=== PATIENT | male | born 1995 | race African-American/Black ===

== ENCOUNTER 2024-03-04 16:40 | Outpatient (CLI) | payer MEDICARE, MEDICAID, SELFPAY ==
--- NOTE | ~2024-03-04 | CT_ITS ---
EXAMINATION: CT sinus wo con DATE: 03/04/2024 17:15 INDICATION: Chronic sinusitis. TECHNIQUE: Computed tomography (CT) of the paranasal sinuses was performed without intravenous contra st. Iterative reconstruction technique was employed. The dose-length product was 303.09 mGy-cm. COMPARISON: None FINDINGS: There is mild mucosal thickening in right frontal sinus and the left ethmoid and right maxi llary sinuses. 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 There is leftward deviation of the nasal se ptum. 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 The ostiomeatal units are patent. IMPRESSION: 1. Mild mucosal thickening in the paranasal sinuses. 2. Leftward deviation of the nasal septum. Reviewed, dictated and finalized at location A.
== END 2024-03-04 16:41 | disposition home or self-care (01) ==
PROVIDERS: Visit Provider Otolaryngology
DX: J32.9 Chronic sinusitis, unspecified (principal); J34.2 Deviated nasal septum; J34.89 Other specified disorders of nose and nasal sinuses
CPT/HCPCS: 70486

== ENCOUNTER 2024-12-22 18:16 | Emergency (ER) | payer MEDICARE, MEDICAID, SELFPAY ==
--- OUTSIDE RECORDS SUMMARY | 2024-12-22 18:18 | XMS_ITS | Data Portability ---
Author Organization [place] - [facility] [employer], Main Office Address [address] [place] [address] Care Team Providers Care Rounding Machine Tender Name Role Phone BALKE HUDSON Primary Care Provider [phone] Assessment No assessment recorded. Plan of Treatment Reminders Order Date Submit Date Provider Last Modified By Organization Details Last Modified Time Details Appointments None recorded. Lab None recorded. Referral None recorded. Procedures None recorded. Surgeries septoplasty (SURG) 2023 [email or web address] Not available 4 10:27:56 endoscopy, nasal/sinus , w/ maxillary antrostomy & tissue removal (SURG) 2023 024 [email or web address] Not available 10:27:56 Imaging None recorded. Medication Orders cefdinir 300 mg capsule [address] [facility], [address] [place] [address], [id number], 4 16:45:19 Medrol (Rip) 4 mg tablets in a dose pack 2023 024 [facility], [address] [place] [address], [id number], 4 12:29:42 Patient TargetsNo targets recorded. Patient InstructionsNo instructions recorded. Reason for Referral None Reported. Results Created Date Observation Date Name Description Value Unit Range Abnormal Flag Note LastModifiedBy Organization Detail LastModifiedTime 03/05/20 24 03/04/2024 CT, sinus es, w/o contr ast No observ ation record ed. [address] [facility] [address], [place], [address], 03/09/2024 08:18:42 03/11/20 24 03/04/2024 CT, sinus es, w/o contr ast No observ ation record ed. [address], [place], [address], 03/11/2024 17:26:12 Result Notes None recorded. Problems Name Problem SNOMED Code Status Onset Date Resolution Date Notes Provider Name and Address Organization Details Recorded Time Attention deficit hyperactivi ty disorder 769579211 Completed 202302/25/2024 JA Borjas null, [facility] [employer] 4 15:05:06 Chronic sinusitis 00719965 Active 2023 Lesa Ma null, [employer] [facility] [employer] 5 13:49:38 Deviated nasal septum 201624554 Active 2023 Dusty Rodriguez MD [address] [facility], [address], [address], [facility] [employer] [facility] [employer] 4 17:07:18 Chronic maxillary sinusitis 00699403 Active 2023 Dusty Rodriguez MD [address] [facility], [facility] [address], [place], [address], [employer] [facility] [employer] 4 17:07:28 Chronic ethmoidal sinusitis 59405295 Active 2023 Dusty Rodriguez MD [address] [facility], [place] [address], [place], [address], [facility] [employer] [facility] [employer] 4 17:07:36 Nasal congestion 40536442 Active 2023 Cris Salinas RN null, [facility] [employer] 15:03:54 Problem Notes None recorded. Procedures Surgical History Date Name Laterality Status Provider Name and Address Organization Details Recorded Time ENDOSCOPY, NASAL/SINUS, W/ MAXILLARY ANTROSTOMY & TISSUE REMOVAL (SURG) completed Cris Salinas RN [facility] [employer] 05/14/2024 08:49:14 nasal septoplasty completed Cris Salinas RN [facility] [employer] [facility] 05/18/2024 14:50:57 Removal of ethmoid sinus completed Cris Salinas RN [facility] [employer] [facility] 05/18/2024 14:51:35 Imaging Results None recorded. Procedure Notes None recorded. Medical Equipment None Reported. Allergies Allergen ID Allergen Name Allergen Category Reaction Reaction Severity Criticality Documentation Date Start Date Code Code System Note Provider Name and Address Organization Details Recorded Time 44162 cat dander environme nt rash Not available Not available 02/25/2024 [id number] UNReina MurrietaJA, [facility] [employer] [facility] 14:14:51 No known drug allergies Medications Name Sig Start Date Stop Date Status Note LastModified by Organization Details LastModified Time metformin 500 mg tablet Take 1 tablet twice a day by oral route. active extended release 24 hr. Not Available Not Available Not Available Colace 100 mg capsule Take 1 capsule every day by oral route. active Not Available Not Available No t Available Mylanta Maximum Strength 400 mg-400 mg-40 mg/5 mL oral suspensio n Take by oral route. active Not Available Not Available No t Available cetirizin e 10 mg tablet TAKE 1 TABLET BY MOUTH ONCE DAILY active Not Available Not Available No t Available Milk of Magnesia 400 mg/5 mL oral suspensio n Take 30 mL every day by oral route. active Not Available Not Available No t Available Debrox 6.5 % ear drops INSTILL 5 DROPS INTO AFFECTED EAR(S) BY OTIC ROUTE 2 TIMES PER DAY, 3X PER WEEK. active Not Available Not Available No t Available risperido ne 2 mg tablet Take 1 tablet every day by oral route at bedtime. active Not Available Not Available No t Available Tylenol 500 mg tablet Take 2 tablets every 6 hours by oral route. active Not Available Not Available No t Available hydrocodo ne 7.5 mg-acetam inophen 325 mg tablet active Not Available Not Available Not Available carbamaze pine 100 mg chewable tablet Chew 4 tablets every day by oral route. active Not Available Not Available No t Available ibuprofen 400 mg tablet Take 1 tablet every 4 hours by oral route. active Not Available Not Available No t Available dextroamp hetamine- amphetami ne 15 mg tablet Take 1 tablet every day by oral route. active 24 hr extend release Not Available Not Available Not Available Tylenol 325 mg tablet Take 2 tablets every 6 hours by oral route. 2024 active Not Available Not Available Not Avai lable methylpre dnisolone 4 mg tablets in a dose pack TAKE BY MOUTH DIRECTED ON INSIDE OF PACKAGE active Not Available Not Available No t Available cefdinir 300 mg capsule TAKE 1 CAPSULE BY MOUTH EVERY 12 HOURS 04/07 completed Not Available Not Available Not Available fluticaso ne propionat e 50 mcg/actua tion nasal spray,luis miguel pension Al[place] 1 spray every day by intranas al route. active Not Available Not Available No t Available metformin ER 500 mg tablet,ex tended release 24 hr TAKE 2 TABLETS BY MOUTH ONCE DAILY active Not Available Not Available No t Available risperido ne 1 mg tablet Take 1 tablet every day by oral route. active Not Available Not Available No t Available Afrin (oxymetaz oline) 0.05 % nasal spray Alstead 2 sprays twice a day by intranas al route as needed. 2024 active Not Available Not Available Not Avai lable dextroamp hetamine- amphetami ne ER 15 mg 24hr capsule,e xtend release TAKE 1 CAPSULE BY MOUTH ONCE DAILY FOR 30 DAYS active Not Available Not Available No t Available Neilmed Sinus Rinse Complete with packet Take 1 packet as needed by nasal route. 2023 active Not Available Not Available Not Avai lable cholecalc iferol (vitamin D3) 50 mcg (2,000 unit) capsule Take by oral route. active Not Available Not Available No t Available Metamucil Fiber (aspartam e) 3.4 gram oral powder packet Take by oral route. active Not Available Not Available No t Available dextroamp hetamine active 5 MG tablet Not Available Not Available Not Available Vitals Date Recorded Body height Body mass index (BMI) Body weight Body temperature Provider Name and Address Organization Details Last Updated DateTime 02/26/2024 174.63 cm 42.4 kg/m2 152202.54 g 97.7 [degF] JA Borjas [place] [employer] [facility] 02/26/2024 12:19:18 Date Recorded Body height Body mass index (BMI) Body weight Body temperature Provider Name and Address Organization Details Last Updated DateTime 04/07/2024 174.63 cm 42.4 kg/m2 491741.83 g 98 [degF] Cris Salinas RN [facility] [employer] 04/07/2024 16:45:52 Date Recorded Body height Body mass index (BMI) Body weight Body temperature Provider Name and Address Organization Details Last Updated DateTime 05/18/2024 174.63 cm 42.3 kg/m2 836604.95 g 97.7 [degF] Cris Salinas RN [facility] [employer] 05/18/2024 14:54:47 Social History None recorded. Functional Status Question Answer Note LastModified by Organization D etails LastModified Time What is your level of alcohol consumption? None [email or web address] Information not available 02/25/2024 Mental Status None recorded. Family History Nothing Reported Notes:NO ENT Medical History Condition Response SLEEP DISORDER Y Past Encounters Encounter ID Performer Location Encounter Start Date Encounter Closed Date Diagnosis/Indication Diagnosis SNOMED-CT Code Diagnosis ICD10 Code Diagnosis Note [id number] Dusty Rodriguez MD [facility] [place] [address] [place] [address] 02/26/2024 11:55:58 02/26/2024 13:21:17 Chronic sinusitis 59041966 J32.9 [id number] Dusty Rodriguez MD [facility] [place] [address] [place] [address] 04/07/2024 16:23:42 04/08/2024 15:46:34 Deviated nasal septum 256516405 J34.2 Chronic ma xillary sinusitis 54070836 J32.0 Chronic et hmoidal sinusitis 72561696 J32.2 [id number] Dusty Rodriguez MD [facility] [place] [address] [place] [address] 05/18/2024 14:49:39 05/18/2024 15:07:58 Postoperative visit [id number] Z48.89 05/11/2024 post balloon assisted septoplast y and navigation get an antrostomy and ethmoidect veronique. Advised to use saline nasal rinses as needed. Discussed that he may begin blowing his nose as needed as well. He is healing well. Health Concerns Section Related Observation LastModified by Organization Detai ls LastModified Time None Recorded Concern Status LastModified by Organization Details LastModified Time None Recorded Advance Directives Directive None Recorded Payers Insurance Date Sequence Insurance Name Policy Number Policy De La Rosa Covered Member ID De La Rosa Member ID Guarantor Name 05/08/2024 1 [place] Divonte J Guider [id number] Divonte Guider Notes Date Note Type Note Provider Name and Address Organization Details Recorded Time 02/26/2024 text/html this patient reports 1 year history of nasal congestion. He has tried Zyrtec and Flonase without improvement. He has not been on antibiotics yet. Although he thinks he has allergies his symptoms are year-round. Dusty Rodriguez MD [address], [place], [address], [employer] 02/26/2024 12:23:23 04/07/2024 text/html the CT scan demonstrated septal deviation and ethmoid and maxillary sinusitis. His mother agrees that it would be best to proceed to correction of this and this will be scheduled Dusty Rodriguez MD [address], [place], [address], [employer] 04/07/2024 17:08:03 05/18/2024 text/html This patient presents to the office for postoperative visit for a balloon assisted septoplasty a navigation guided antrostomy and ethmoidectomy. Reports that he has not been using the saline rinses as advised. Denies any complaints. JOSE J Willis [address], [place], [address], [employer] 05/18/2024 15:07:29
--- OUTSIDE RECORDS SUMMARY | 2024-12-22 18:18 | XMS_ITS | Clinical Summary ---
Author Organization [facility] Address [address] [place] [address] Care Team Providers Care Federal Aid Coordinator Name Role Phone Denilson Sanches Primary Care Provider Unavail able Allergies No known active allergies Medications carbamazepine 100 MG chewable tablet Chew 100 mg by mouth daily. Active carbamazepine 100 MG chewable tablet Chew 300 mg by mouth nightly. Active amphetamine-dext roamphetamine XR (ADDERALL XR) 15 MG 24 hr capsule Take 15 mg by mouth every morning. Active risperiDONE (RISPERDAL) 1 MG tablet Take 1 mg by mouth daily. Active risperiDONE (RISPERDAL) 2 MG tablet Take 2 mg by mouth daily. Active Encounters Date Type Department Care Team Description 12/04/2024 8:24 AM CDT - 12/04/2024 11:59 PM CDT Hospital Encounter [facility] [place] [address] Checo Barnes, ANNABELC Discharge Disposition: Home or Self Care (Routine Discharge) 12/04/2024 Travel from Last 3 Months Immunizations Immunization Administration Dates Next Due Tdap (Boostrix) 06/29/2021 Family History Relation Status Comments Father Mother Social History Tobacco Use Types Packs/Day Years Used Date Smoking Tobacco: Some Days Smokeless Tobacco: Current Tobacco Cessation:Ready to Q uit: No; Counseling Given: Yes Alcohol Use Standard Drinks/Week Comments No 0 (1 standard drink = 0.6 oz pur e alcohol) Sex and Gender Information Value Date Recorded Sex Assigned at Male 12/04/2024 8:22 AM CDT Legal Sex Male 6:10 PM CDT Gender Identity Not on file Sexual Orientation Not on file Last Filed Vital Signs Vital Sign Reading Time Taken Comments Blood Pressure 120/95 03/23/2022 10:42 PM CDT Pulse 76 03/23/2022 10:42 PM CDT Temperature 36.5 C (97.7 F) 03/23/2022 8:32 PM CDT Respiratory Rate 16 03/23/2022 10:42 PM CDT Oxygen Saturation 98% 03/23/2022 10:42 PM CDT Inhaled Oxygen Concentration - - Weight 106.6 kg (235 lb) 03/23/2022 8:27 PM CDT Height 172.7 cm (5' 8) 03/23/2022 8:27 PM CDT Body Mass Index 35.73 03/23/2022 8:27 PM CDT Plan of Treatment Health Maintenance Due Date Last Done Comments Annual Physical 2000 Hepatitis C 2015 Hepatitis B Vaccines (1 of 3 - 19+ 3-dose series) 2016 Pneumococcal Vaccine: Pediatrics (0 to 5 Years) and At-Risk Patients (6 to 49 Years) (1 of 2 - PCV) 2016 COVID-19 Vaccine (2023-2 5 season) 2024 DTaP, Tdap and Td Vaccines ( 3 - Td or Tdap) 06/29/2031 06/29/2021, 07/25/2018 HPV Vaccines Aged Out No longer eligi ble based on patient's age to complete this topic Meningococcal B Vaccine Aged Out No l onger eligible based on patient's age to complete this topic Meningococcal Vaccine Aged Out No margarita melissa eligible based on patient's age to complete this topic RSV Immunizations Under 20 Months Aged Out No longer eligible b ased on patient's age to complete this topic Procedures Procedure Name Priority Date/Time Associated Diagnosis Comments MRI ABD WWO CON Routine 12/04/2024 9:28 AM CDT Other specified diseases of pancreas (HHS/HCC) from Last 3 Months Results * MRI ABD WWO CON (12/04/2024 9:28 AM CDT) Anatomical Region Laterality Modality Abdomen Magnetic Resonan ce 12/06/2024 4:26 PM CDT Impressions 12/06/2024 4:51 PM CDT Impression: 1. Redemonstrated cystic lesion within the head and uncinate process of the pancreas, measuring 2.1 cm. This is similar to the most recent prior from September 2023 but has increased in size since May 2022. No internal septations or solid nodular components are identified. This again may represent a cystic pancreatic neoplasm such as a sidebranch IPMN. Annual follow-up imaging for the next 3 years is recommended. If stable, follow-up imaging every 2 years x3 is recommended. If stable for 10 years no further follow-up imaging is recommended. 2. Significant hepatic steatosis. 3. Uncomplicated cholelithiasis. Referred By: CHECO BARNES Interpreted By: Oswald Gonzales MD, 12/06/2024 4:26 PM Narrative 12/06/2024 4:51 PM CDT [place] [id number] Examination: MR abdomen without and with contrast. Clinical Information:Follow-up pancreatic cyst. Comparison: MRI 10/16/2023 and 06/20/2022. Technique: Sequences: Multiplanar, multisequence MR images of the abdomen and pelvis were obtained before and after the administration of 20 mL of Dotarem. Findings: Motion artifact degrades image quality and limits the sensitivity of this exam. LIVER: Morphology: Normal. Hepatic steatosis: Significant hepatic steatosis. Iron overload: Absent. Focal liver lesion(s): None. Hepatic vasculature: Hepatic and portal veins are normally patent. GALLBLADDER AND BILIARY TREE: Multiple small stones are present within the gallbladder. No evidence of cholecystitis. No biliary obstruction or dilation. PANCREAS: Redemonstrated ovoid T2 hyperintense cystic lesion within the head and uncinate process of the pancreas, measuring 2.1 cm (series 3 image 27), similar to the most recent prior from September 2023. This previously measured 1.6 cm maximally in May 2022. No internal septations or solid nodular components identified. No definite internal enhancement is seen. Directed communication with the pancreatic duct is not established with this study. No new pancreatic lesion is identified. No pancreatic ductal dilatation. SPLEEN: Normal in size and contour. Accessory splenic tissue is noted. ADRENAL GLANDS: No definite adrenal mass identified. KIDNEYS: Unremarkable. GASTROINTESTINAL: Imaged large and small bowel are normal in caliber and wall thickness. FREE FLUID: None. VASCULATURE: The abdominal aorta is normal in caliber. LYMPH NODES: No abdominal retroperitoneal or mesenteric lymphadenopathy. LOWER CHEST: Heart is normal in size. The lung bases are clear. No pleural or pericardial effusions. BONES: No suspicious osseous lesions. Procedure Note Oswald Gonzales MD - 12/06/[address] [address] Examination: MR abdomen without and with contrast. Clinical Information:Follow-up pancreatic cyst. Comparison: MRI 10/16/2023 and 06/20/2022. Technique: Sequences: Multiplanar, multisequence MR images of the abdomen and pelviswere obtained before and after the administration of 20 mL of Dotarem. Findings: Motion artifact degrades image quality and limits the sensitivity of thisexam. LIVER: Morphology: Normal. Hepatic steatosis: Significant hepatic steatosis. Iron overload: Absent. Focal liver lesion(s): None. Hepatic vasculature: Hepatic and portal veins are normally patent. GALLBLADDER AND BILIARY TREE: Multiple small stones are present within thegallbladder. No evidence of cholecystitis. No biliary obstruction ordilation. PANCREAS: Redemonstrated ovoid T2 hyperintense cystic lesion within thehead and uncinate process of the pancreas, measuring 2.1 cm (series 3image 27), similar to the most recent prior from September 2023. Thispreviously measured 1.6 cm maximally in May 2022. No internalseptations or solid nodular components identified. No definite internalenhancement is seen. Directed communication with the pancreatic duct isnot established with this study. No new pancreatic lesion is identified.No pancreatic ductal dilatation. SPLEEN: Normal in size and contour. Accessory splenic tissue is noted. ADRENAL GLANDS: No definite adrenal mass identified. KIDNEYS: Unremarkable. GASTROINTESTINAL: Imaged large and small bowel are normal in caliber andwall thickness. FREE FLUID: None. VASCULATURE: The abdominal aorta is normal in caliber. LYMPH NODES: No abdominal retroperitoneal or mesenteric lymphadenopathy. LOWER CHEST: Heart is normal in size. The lung bases are clear. No pleuralor pericardial effusions. BONES: No suspicious osseous lesions. Impression: 1. Redemonstrated cystic lesion within the head and uncinate process ofthe pancreas, measuring 2.1 cm. This is similar to the most recent priorfrom September 2023 but has increased in size since May 2022. No internalseptations or solid nodular components are identified. This again mayrepresent a cystic pancreatic neoplasm such as a sidebranch IPMN. Annualfollow-up imaging for the next 3 years is recommended. If stable,follow-up imaging every 2 years x3 is recommended. If stable for 10 yearsno further follow-up imaging is recommended. 2. Significant hepatic steatosis. 3. Uncomplicated cholelithiasis. Referred By: CHECO BARNES Interpreted By: Oswald Gonzales MD, 12/06/2024 4:26 PM Checo Barnes PA-C MRI Final Resu lt from Last 3 Months Insurance MEDICAID MEDICARE Care Teams Federal Aid Coordinator Relationship Specialty Start Date End Date Denilson Sanches PA PCP - General 05/31/16
--- OUTSIDE RECORDS SUMMARY | 2024-12-22 18:18 | XMS_ITS | Clinical Summary ---
Author Organization [facility] Address [address] [address] Care Team Providers Care New Car Salesperson Name Role Phone Denilson Sanches Primary Care Provider [phone] Source Comments [facility],non-owned Affiliates and Associated Physician Practices is amultiple site organization consisting of ambulatory clinics and hospital sitesin [place], [place], [place] and [place]. This disclosure is being madepursuant to the Care Everywhere program and may not contain all information available regarding this patient. Last updated 18.[facility] [employer] Social History Tobacco Use Types Packs/Day Years Used Date Smoking Tobacco: Never Assessed Sex and Gender Information Value Date Recorded Sex Assigned at Not on file Legal Sex Male 5:41 PM CDT Gender Identity Not on file Sexual Orientation Not on file Plan of Treatment Health Maintenance Due Date Last Done Comments MEDICARE AWV 12 MONTHS 1997 HIV SCREENING 2012 HEPATITIS C SCREENING 07/10/2015 DTAP/TDAP/TD VACCINES (1 - Tdap) 2016 HEPATITIS B VACCINE (1 of 3 - 19+ 3-dose series) 2016 COVID-19 VACCINE ( - 2023-2 5 season) 2024 DEPRESSION SCREENING 06/24/2024 INFLUENZA VACCINE (Season Ended) 2025 04/04/20 19 ZOSTER VACCINE (1 of 2) 2047 HIB VACCINE Aged Out No longer eligi ble based on patient's age to complete this topic HPV VACCINE Aged Out No longer eligi ble based on patient's age to complete this topic MENINGOCOCCAL (Group B) VACC INE SHARED DECISION-MAKING Aged Out No longer eligibl e based on patient's age to complete this topic MENINGOCOCCAL GROUPS A/C/Y/W VACCINE Aged Out No longer eligible b ased on patient's age to complete this topic PNEUMOCOCCAL VACCINE Aged Out No long er eligible based on patient's age to complete this topic [place] [address] MEDICARE MEDICAID - [place] Care Teams New Car Salesperson Relationship Specialty Start Date End Date Denilson Sanches PA [address] [place] [address] [address] [place] [address] PCP - General Physician Insole Coverer 05/12/21
[2024-12-22 18:24] VITALS: BP 130/80; PULSE 107; RESP 14; TEMP 36.8; O2SAT 98
--- NOTE | 2024-12-22 19:09 | ED.GENADULT ---
HPI - General Adult General Chief complaint: Unspecified Stated complaint: psych issues Time Seen by Provider: 12/22/24 18:48 Source: patient Mode of arrival: ambulatory Limitations: no limitations History of Present Illness HPI narrative: This is a 29-year-old male that presents to the emergency department for prescription issues. Reports he is currently changing his psychiatrist. He did not think that they were going to refill his medication this month as they had not seen him. They realized after checking into the ER that the prescription was delivered this afternoon. Related Data Allergies Allergy/AdvReac Type Severity Reaction Status Date / Time No Known Allergies Allergy Verified 12/22/24 18:22 Review of Systems Review of Systems: All systems reviewed & are unremarkable except as noted in HPI and below Exam Narrative: GENERAL: Well-appearing, well-nourished, and in no acute distress. HEAD: Normocephalic, atraumatic. EYES: EOMI. CHEST: No respiratory distress HEART: Regular rate EXTREMITIES: Normal range of motion. No edema. SKIN: Warm, dry, no rash. NEURO: No focal deficits. Alert and oriented x3. PSYCH: Normal mood and affect Course Vital Signs Vital signs: Vital Signs Temperature 98.2 F 12/22/24 18:24 Pulse Rate 107 H 12/22/24 18:24 Respiratory Rate 14 12/22/24 18:24 Blood Pressure 130/80 12/22/24 18:24 Pulse Oximetry 98 12/22/24 18:24 Oxygen Delivery Room Air 12/22/24 18:24 Temperature 98.2 F 12/22/24 18:24 Pulse Rate 107 H 12/22/24 18:24 Respiratory Rate 14 12/22/24 18:24 Blood Pressure 130/80 12/22/24 18:24 Pulse Oximetry 98 12/22/24 18:24 Oxygen Delivery Room Air 12/22/24 18:24 Medical Decision Making MDM Narrative Medical decision making narrative: Patient presents to the emergency department for prescription issues. Reports he is currently changing his psychiatrist. He did not think that they were going to refill his medication this month as they had not seen him. They realized after checking into the ER that the prescription was delivered this afternoon. No other concerns Vital Signs Vital Signs: Vital Signs Temperature 98.2 F 12/22/24 18:24 Pulse Rate 107 H 12/22/24 18:24 Respiratory Rate 14 12/22/24 18:24 Blood Pressure 130/80 12/22/24 18:24 Pulse Oximetry 98 12/22/24 18:24 Oxygen Delivery Room Air 12/22/24 18:24 Temperature 98.2 F 12/22/24 18:24 Pulse Rate 107 H 12/22/24 18:24 Respiratory Rate 14 12/22/24 18:24 Blood Pressure 130/80 12/22/24 18:24 Pulse Oximetry 98 12/22/24 18:24 Oxygen Delivery Room Air 12/22/24 18:24 Critical Care Time Critical Care Time Critical Care Time: No Discharge Plan Discharge Clinical Impression: Difficulty refilling prescriptions Patient Disposition: Home Condition: Stable Instructions: Amphetamine/Dextroamphetamine (By mouth) Additional Instructions: Follow-up with your psychiatrist for further management Patient Language: Turkmen Follow-up/Referrals: Molly,KARIME Howe [Primary Care Provider] -
--- OUTSIDE RECORDS SUMMARY | 2024-12-22 19:34 | XMS_ITS | Clinical Summary ---
Author Organization [facility] Address [address] [place] [id number] Care Team Providers Care Printing Shop Supervisor Name Role Phone Denilson Sanches Primary Care [...] - 12/04/2024 11:59 PM CDT Hospital Encounter [facility] [place] [address] Checo Barnes, ANNABELC Discharge Disposition: Home or [...] 4:26 PM Narrative 12/06/2024 4:51 PM CDT [place] [id number] Examination: MR abdomen without and with contrast. [...] Procedure Note Oswald Gonzales MD - 12/06/[address] [address] Examination: MR abdomen without and with contrast. [...] 3 Months Insurance MEDICAID MEDICARE Care Teams Printing Shop Supervisor Relationship Specialty Start Date End Date Denilson Sanches PA PCP - General 05/31/16
--- OUTSIDE RECORDS SUMMARY | 2024-12-22 19:34 | XMS_ITS | Clinical Summary ---
Author Organization [facility] Address [address] [place] [address] Care Team Providers Care Powdered Sugar Supervisor Name Role Phone Denilson Sanches Primary Care Provider [phone] Source Comments [facility],non-owned Affiliates and Associated Physician Practices is amultiple site organization consisting of ambulatory clinics and hospital sitesin [place], [place], [place] and [place]. This disclosure is being madepursuant to the Care Everywhere program and may not contain all information available regarding this patient. Last updated 18.[facility] Social History Tobacco Use Types Packs/Day Years [...] to complete this 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
== END 2024-12-22 19:39 | disposition home or self-care (01) ==
LOC: ANHED 19:32
PROVIDERS: Emergency Provider Physician Assistant; PCP Physician Assistant
DX: F99 Mental disorder, not otherwise specified (principal); Z76.0 Encounter for issue of repeat prescription
CPT/HCPCS: 99281